=== PATIENT | female | born 1995 | race Caucasian/White ===

== ENCOUNTER 2017-06-18 14:14 | Emergency (ER) | payer BC ==
[2017-06-18 14:37] VITALS: BP 98/62
--- NOTE | 2017-06-18 14:48 | UC ---
UC Dental HPI - HPI Summary HPI Summary: Pain in her lower wisdom tooth that is erupting. Pt is 6 weeks PG. will have an appt with Dr. Antoine when she is 8 weeks pg. Pt has a 5 year old. Her allergies to meds are noted. - History of Current Complaint Chief Complaint: UCDentalProblem Stated Complaint: ORAL COMPLAINT Time Seen by Provider: 06/18/17 14:31 Hx Obtained From: Patient, Family/Real Estate Sales Associate - mother Hx Last Menstrual Period: ~12/12/15 ?: Yes Onset/Duration: Gradual Onset, Lasting Days, Still Present Severity: Moderate Pain Intensity: 6 Pain Scale Used: 0-10 Numeric Aggravating: Chewing Alleviating: Nothing - Allergies/Home Medications Allergies/Adverse Reactions: Allergies Allergy/AdvReac Type Severity Reaction Status Date / Time Amoxicillin Allergy Hives Verified 06/18/17 14:36 Penicillins Allergy Hives Verified 06/18/17 14:36 [place] Allergy Hives Verified 06/18/17 14:36 Sulfamethoxazole Allergy Hives Verified 06/18/17 14:36 w/Trimethoprim [From Bactrim] Home Medications: Home Medications Vitamin TAB* 1 tab PO DAILY 06/18/17 [History Confirmed 06/18/17] PMH/Surg Hx/FS Hx/Imm Hx Previously Healthy: Yes - Surgical History Surgical History: Yes Surgery Procedure, Year, and Place: D&C, 2007 - Family History Known Family History: Positive: Hypertension - Social History Lives: With Family Alcohol Use: None Substance Use Type: None Smoking Status (MU): Never Smoked Tobacco Household Exposure Type: Cigarettes - Immunization History Most Recent Influenza Vaccination: Not the Season Review of Systems Constitutional: Negative Skin: Negative Eyes: Negative ENT: Dental Pain Respiratory: Negative Cardiovascular: Negative Gastrointestinal: Negative Genitourinary: Negative Motor: Negative Neurovascular: Negative Musculoskeletal: Negative Neurological: Negative Psychological: Negative All Other Systems Reviewed And Are Negative: Yes Physical Exam Triage Information Reviewed: Yes Appearance: Well-Appearing, Well-Nourished, Pain Distress Vital Signs: Initial Vital Signs Temp 99.1 F 06/18/17 14:33 Pulse 76 06/18/17 14:33 Resp 16 06/18/17 14:33 BP 98/62 06/18/17 14:33 Pulse Ox 100 06/18/17 14:33 Vital Signs Reviewed: Yes Eyes: Positive: Conjunctiva Clear Dental: Positive: Other: - erupting wisdom tooth left lower; no swelling, no abscess. Negative: Gross Decay/Caries @, Dental Fracture @, Abscess @, Cellulitis @, Cervical Lymphadenopathy Neck: Positive: Supple, Nontender, No Lymphadenopathy Respiratory: Positive: No respiratory distress Cardiovascular: Positive: Brisk Capillary Refill Musculoskeletal: Positive: Strength Intact, ROM Intact Neurological: Positive: Alert, Muscle Tone Normal Psychological Exam: Normal Skin Exam: Normal Dental Complaint Course/Dx - Course Course Of Treatment: pt reports improvement with topical viscous lidocaine. Per epofeliciaates, lidocaine is safe in . - Differential Dx/Diagnosis Differential Diagnosis/Dx: Dental Abscess, Dental Caries, Fractured Tooth, Odontogenic Pain Provider Diagnoses: wisdom tooth pain. first trimester Discharge - Discharge Plan Condition: Stable Disposition: HOME Prescriptions: Lidocaine 2% VISCOUS* [Xylocaine 2% Viscous*] 15 ml SWISH SPIT Q3H PRN #1 btl PRN Reason: Pain Patient Education Materials: Toothache (ED) Forms: *Work Release Referrals: No Primary Care Phys,NOPCP [Primary Care Provider] - Additional Instructions: Get scheduled with a dentist JW. Remember do not take ibuprofen or aleve or aspirin, or any medications in this category (NSAIDS) while you are . You may take tylenol which is the same as acetaminophen, but sparingly because every medication is still important when you are . You may safely take acetaminophen up to 4 grams a day, so 2 of the 500mg acetaminophen tabs as often as every four hours up to four times in 24 hours. You may use the viscous lidocaine every 3 hrs as needed, with a maximum of 8 doses in 24 hours. Return to urgent care if you have any new or worsening symptoms.
[2017-06-18] MEDS ORDERED: Lidocaine 2% VISCOUS* 15 ML UDC PO ONE (15:06)
== END 2017-06-18 15:35 | disposition home or self-care (01) ==
LOC: UCCORT 14:14
DX: O26.891 Other specified pregnancy related conditions, first trimester (principal); K08.89 Other specified disorders of teeth and supporting structures; Z3A.01 Less than 8 weeks gestation of pregnancy; Z88.1 Allergy status to other antibiotic agents; Z88.0 Allergy status to penicillin; Z88.2 Allergy status to sulfonamides; Z77.22 Contact with and (suspected) exposure to environmental tobacco smoke (acute) (chronic)
CPT/HCPCS: 99212; G0463

== ENCOUNTER 2019-08-09 09:40 | Emergency (ER) | payer OTHER ==
--- OUTSIDE RECORDS SUMMARY | 2019-08-09 09:49 | XMS REPORT | Summary of Care ---
:1995 Author Organization [facility] Address [address] [place] [address] Care Team Providers Name Role Phone Prescribed, Self Primary Care Provider Unavailable Reason for Visit Reason Comments [facility]; need a CPE for work ([employer]); denies any complaints at this time. Encounter Details Date Type Department Care Team Description 07/21/2019 Office Visit [facility] Kevin Ley, Routine general medical examination at a health care facility (Primary Dx); Practice [address] [facility] Anemia, unspecified type; [address] [place] [address] Immunity to measles determined by serologic test; [place] [address] Immunity to rubella determined by serologic test [phone] Allergies Active Allergy Reactions Severity Noted Date Comments Amoxicillin Rash 07/10/2017 Bactrim Ds Rash 07/10/2017 Penicillins Rash 07/10/2017 documented as of this encounter (statuses as of 07/21/2019) Medications Medication Sig Dispensed Refills Start Date End Date Status Norgestimate-Ethinyl Take 1 Tab 28 Tab 12 06/30/2019 Active Estradiol by mouth (MONO-LINYAH) 0.25-35 DAILY. MG-MCG Oral TabIndications: Encounter for gynecological examination fluconazole Take 1 Tab 1 Tab 1 06/18/2019 07/21/2019 Discontinued (DIFLUCAN) 150 MG by mouth ONE Oral TabIndications: TIME. Candidal vulvovaginitis documented as of this encounter (statuses as of 07/21/2019) Active Problems Patient Care Coordination Note Previous delivery was VAD, shoulder dystocia and clavicular fracture Problem Noted Date Rh negative state in antepartum period 09/22/2017 History of shoulder dystocia in prior 09/01/2017 Overview: Primary section 02/03/18/Clive documented as of this encounter (statuses as of 07/21/2019) Resolved Problems Problem Noted Date Resolved Date state, incidental 12/24/2017 03/18/2018 Overview: Records from Dr. Arash Thrasher 05/01/17 Pap WNL Syphillis/RPR negative HepC negative HSV 1&2 both negative GC/Chlam negative Gardnerella positive documented as of this encounter (statuses as of 07/21/2019) Immunizations Name Administration Dates Next Due Influenza (IM) Preservative Free 10/21/2017 Rhogam (300 mcg) 11/26/2017, 09/22/2017 documented as of this encounter Social History Tobacco Use Types Packs/Day Years Used Date Never Smoker Smokeless Tobacco: Never Used Alcohol Use Drinks/Week oz/Week Comments Yes rare Sex Assigned at Date Recorded Not on file Job Start Date Occupation Industry Not on file Not on file Not on file Travel History Travel Start Travel End No recent travel history available. documented as of this encounter Last Filed Vital Signs Vital Sign Reading Time Taken Comments Blood Pressure 128/68 07/21/2019 3:14 PM EDT Pulse 87 07/21/2019 3:14 PM EDT Temperature - - Respiratory Rate - - Oxygen Saturation 97% 07/21/2019 3:14 PM EDT Inhaled Oxygen Concentration - - Weight 72.8 kg (160 lb 6.4 oz) 07/21/2019 3:14 PM EDT Height 160 cm (5' 3") 07/21/2019 3:14 PM EDT Body Mass Index 28.41 07/21/2019 3:14 PM EDT documented in this encounter Progress Notes Kevin Ley, DO - 07/21/2019 4:00 PM EDT PATIENT: Delphine Dash : 1995 DATE OF SERVICE: 07/21/2019 CHIEF COMPLAINT: Chief Complaint Patient presents with [facility]; need a CPE for work (wounded knee Care); denies any complaints at this time. Subjective HISTORY OF PRESENT ILLNESS: Delphine Dash is a 23-y.o. female. HPI Patient is here for physical today No smoking No chewing tobacco No excess alcohol intake No recreational drug use No depression Sexually active and monogamous Exercise: none Eating habits: states can be better. Eating outside Body mass index is 28.41 kg/m. Pap: follows with hu community development planner Needs proof of rubella and rubeola antibodies and ppd for work Past Medical History: Diagnosis Date Rh incompatibility Family History Problem Relation Age of Onset Skin Cancer Mother Cancer Maternal Grandfather hodkings Current Outpatient Medications Medication Sig Norgestimate-Ethinyl Estradiol (MONO-LINYAH) 0.25-35 MG-MCG Oral Tab Take 1 Tab by mouth DAILY. No current facility-administered medications for this visit. Allergies Allergen Reactions Amoxicillin Rash Bactrim Ds Rash Penicillins Rash Social History Socioeconomic History Marital status: Single Spouse name: Not on file Number of children: Not on file Years of education: Not on file Highest education level: Not on file Occupational History Not on file Social Needs Financial resource strain: Not on file Food insecurity: Worry: Not on file Inability: Not on file Transportation needs: Medical: Not on file Non-medical: Not on file Tobacco Use Smoking status: Never Smoker Smokeless tobacco: Never Used Substance and Sexual Activity Alcohol use: Yes Comment: rare Drug use: No Sexual activity: Yes Partners: Male control/protection: Pill Comment: single SO x 1 year Lifestyle Physical activity: Days per week: Not on file Minutes per session: Not on file Stress: Not on file Relationships Social connections: Talks on phone: Not on file Gets together: Not on file Attends scientologist service: Not on file Active member of club or organization: Not on file Attends meetings of clubs or organizations: Not on file Relationship status: Not on file Intimate partner violence: Fear of current or ex partner: Not on file Emotionally abused: Not on file Physically abused: Not on file Forced sexual activity: Not on file Other Topics Concern Not on file Social History Narrative Not on file Over the last 2 weeks, have you been feeling down, depressed, anxious, or hopeless?: 0 Over the past 2 weeks, have you felt little interest or pleasure in doing things ?: 0 REVIEW OF SYSTEMS: Review of Systems Constitutional: Negative for chills, diaphoresis, fever, malaise/fatigue and weight loss. HENT: Negative for congestion, ear discharge, ear pain, sinus pain and sore throat. Eyes: Negative for blurred vision. Respiratory: Negative for cough, hemoptysis, sputum production, shortness of breath and wheezing. Cardiovascular: Negative for chest pain, palpitations, orthopnea, claudication, leg swelling and PND. Gastrointestinal: Negative for abdominal pain, blood in stool, constipation, diarrhea, melena, nausea and vomiting. Genitourinary: Negative for dysuria, flank pain, frequency, hematuria and urgency. Musculoskeletal: Negative for joint pain and neck pain. Skin: Negative for itching and rash. Neurological: Negative for dizziness, sensory change, speech change, focal weakness, loss of consciousness, weakness and headaches. Endo/Heme/Allergies: Negative for polydipsia. Psychiatric/Behavioral: Negative for depression and substance abuse. The patient is not nervous/anxious. Objective PHYSICAL EXAM: VITALS: BP 128/68 (BP Location: Left arm, Patient Position: Sitting) | Pulse 87 | Ht 5' 3" (1.6 m) | Wt 160 lb 6.4 oz (72.8 kg) | SpO2 97% | BMI 28.41 kg /m Body mass index is 28.41 kg/m. Physical Exam Constitutional: She is oriented to person, place, and time. She appears well- developed and well-nourished. No distress. Overweight HENT: Head: Normocephalic and atraumatic. Nose: Nose normal. Mouth/Throat: No oropharyngeal exudate. Eyes: Pupils are equal, round, and reactive to light. Conjunctivae are normal. Right eye exhibits nodischarge. Left eye exhibits no discharge. No scleral icterus. Neck: Normal range of motion. Neck supple. No tracheal deviation present. No thyromegaly present. Cardiovascular: Normal rate and regular rhythm. No murmur heard. No lower extremity edema Pulmonary/Chest: Effort normal and breath sounds normal. No stridor. No respiratory distress. She has no wheezes. She has no rales. Abdominal: Soft. She exhibits no distension and no mass. There is no tenderness. There is no reboundand no guarding. Musculoskeletal: Normal range of motion. Lymphadenopathy: She has no cervical adenopathy. Right: No supraclavicular adenopathy present. Left: No supraclavicular adenopathy present. Neurological: She is alert and oriented to person, place, and time. Skin: Skin is warm and dry. She is not diaphoretic. No rashes in visible areas Psychiatric: She has a normal mood and affect. Her behavior is normal. Judgment normal. ASSESSMENT / IMPRESSION: ICD-9-CM ICD-10-CM 1. Routine general medical examination at a health care facility V70.0 Z00.00 COMPREHENSIVE METABOLIC PANEL LIPID PROFILE LIPID PROFILE COMPREHENSIVE METABOLIC PANEL PPD 2. Anemia, unspecified type 285.9 D64.9 CBC NO DIFFERENTIAL FERRITIN FERRITIN CBC NO DIFFERENTIAL 3. Immunity to measles determined by serologic test V72.61 Z01.84 RUBEOLA IGG AB RUBEOLA IGG AB 4. Immunity to rubella determined by serologic test V72.61 Z01.84 RUBELLA IGG ( SEROLOGY) RUBELLA IGG (SEROLOGY) Plan Recommend 150 minutes of cardio a week Half the lunch and dinner meals should consist of vegetables. Don't count corn, potatoes and peas asyour vegetables Continue to stay away from smoking, excess alcohol or any reactional drug use. Author: Kevin Ley DO 07/21/2019 16:27 documented in this encounter Plan of Treatment Name Type Priority Associated Diagnoses Date/Time RUBELLA IGG (SEROLOGY) Lab Routine Immunity to rubella 07/21/2019 4:17 PM determined by serologic EDT test RUBEOLA IGG AB Lab Routine Immunity to measles 07/21/2019 4:17 PM determined by serologic EDT test COMPREHENSIVE METABOLIC Lab Routine Routine general medical 07/21/2019 4: 17 PM PANEL examination at a [facility] EDT care facility CBC NO DIFFERENTIAL Lab Routine Anemia, unspecified type 07/21/2019 4:17 PM EDT FERRITIN Lab Routine Anemia, unspecified type 07/21/2019 4:17 PM EDT LIPID PROFILE Lab Routine Routine general medical 07/21/2019 4:17 PM examination at a health EDT care facility PPD POCT Routine Routine general medical 07/21/2019 4:00 PM examination at a health EDT care facility Name Type Priority Associated Diagnoses Order Schedule RUBELLA IGG (SEROLOGY) Lab Routine Immunity to rubella Expected: 07/21/2019 determined by serologic (Approximate), test Expires: 07/21/2020 RUBEOLA IGG AB Lab Routine Immunity to measles Expected: 07/21/2019 determined by serologic (Approximate), test Expires: 07/21/2020 COMPREHENSIVE METABOLIC Lab Routine Routine general medical Expected: 07/21 PANEL examination at a health (Approximate), care facility Expires: 07/21/2020 CBC NO DIFFERENTIAL Lab Routine Anemia, unspecified type Expected: 2018 (Approximate), Expires: 07/21/2020 FERRITIN Lab Routine Anemia, unspecified type Expected: 07/21/2019 (Approximate), Expires: 07/21/2020 LIPID PROFILE Lab Routine Routine general medical Expected: 07/21/2019 examination at a [facility] (Approximate), care facility Expires: 07/21/2020 Health Maintenance Due Date Last Done Comments HPV IMMUNIZATION SERIES (1 - 2008 Female 3-dose series) INFLUENZA VACCINE (#1) 2019 10/21/2017, 09/24/2016, 11/12/2012 PAP SMEAR 05/17/2020 05/17/2017 DEPRESSION SCREENING 07/21/2020 07/21/2019 HIV SCREENING Completed 07/10/2017 MENINGOCOCCAL VACCINE IMM Aged Out No longer eligible based on patient's age to complete this topic PNEUMOCOCCAL 0-64 YRS Aged Out No longer eligible based on patient's age to complete this topic documented as of this encounter Results Not on filedocumented in this encounter Visit Diagnoses Diagnosis Routine general medical examination at a [facility] care facility - Primary Anemia, unspecified type Immunity to measles determined by serologic test Immunity to rubella determined by serologic test documented in this encounter documented as of this encounter
[2019-08-09 09:51] VITALS: BP 122/78
--- NOTE | 2019-08-09 10:12 | UC ---
Throat Pain/Nasal Tyshawn HPI - HPI Summary HPI Summary: 23-year-old female whose had a sore throat for approximately 3 days. - History of Current Complaint Chief Complaint: UCGeneralIllness Stated Complaint: BODY ACHES,ST Time Seen by Provider: 08/09/19 09:56 Hx Obtained From: Patient Hx Last Menstrual Period: 08/02/19 ?: No Onset/Duration: Gradual Onset Severity: Mild Pain Intensity: 8 Cough: None Associated Signs & Symptoms: Positive: Negative - Allergies/Home Medications Allergies/Adverse Reactions: Allergies Allergy/AdvReac Type Severity Reaction Status Date / Time amoxicillin Allergy Hives Verified 08/09/19 09:52 Penicillins Allergy Hives Verified 08/09/19 09:52 sulfamethoxazole Allergy Hives Verified 08/09/19 09:52 [From Bactrim] trimethoprim [From Bactrim] Allergy Hives Verified 08/09/19 09:52 Home Medications: Home Medications Norgestimate-Ethinyl Estradiol [[place]-Linyah 28 Tablet] 1 tab PO DAILY 08/09/19 [ History Confirmed 08/09/19] PMH/Surg Hx/FS Hx/Imm Hx Previously Healthy: Yes - Surgical History Surgical History: Yes Surgery Procedure, Year, and Place: D&C, 2007. 2018 - Family History Known Family History: Positive: None, Hypertension - Social History Occupation: Employed Full-time Alcohol Use: None Substance Use Type: None Smoking Status (MU): Never Smoked Tobacco Household Exposure Type: Cigarettes - Immunization History Most Recent Influenza Vaccination: Not the 2014/2015 Season Review of Systems All Other Systems Reviewed And Are Negative: Yes ENT: Positive: Sore Throat Is Patient Immunocompromised?: No Physical Exam Triage Information Reviewed: Yes Appearance: Well-Appearing, No Pain Distress, Well-Nourished Vital Signs: Initial Vital Signs Temp 97.9 F 08/09/19 09:48 Pulse 18 08/09/19 09:48 Resp 16 08/09/19 09:48 BP 122/78 08/09/19 09:48 Pulse Ox 100 08/09/19 09:48 Vital Signs Reviewed: Yes Eyes: Positive: Conjunctiva Clear ENT: Positive: Hearing grossly normal, Pharynx normal, TMs normal, Uvula midline Neck: Positive: Supple, Nontender, No Lymphadenopathy Respiratory: Positive: Lungs clear, Normal breath sounds, No respiratory distress, No accessory muscle use Cardiovascular: Positive: RRR, No Murmur, Pulses Normal, Brisk Capillary Refill Musculoskeletal Exam: Normal Neurological Exam: Normal Psychological Exam: Normal Skin Exam: Normal Throat Pain/Nasal Course/Dx - Course Course Of Treatment: Patient is comfortable here. Rapid strep is negative. - Differential Dx/Diagnosis Provider Diagnosis: Acute pharyngitis Discharge ED - Sign-Out/Discharge Documenting (check all that apply): Patient Departure All imaging exams completed and their final reports reviewed: No Studies - Discharge Plan Condition: Good Disposition: HOME Patient Education Materials: Pharyngitis (ED) Referrals: Kevin Ley DO [Primary Care Provider] - Additional Instructions: Warm saltwater gargles, throat lozenges, Tylenol every 4 hours for fever or pain. Follow-up with your primary care provider in 3 or 4 days if no improvement. - Billing Disposition and Condition Condition: GOOD Disposition: Home
== END 2019-08-09 10:15 | disposition home or self-care (01) ==
LOC: UCCORT 09:40
DX: J02.9 Acute pharyngitis, unspecified (principal); Z88.0 Allergy status to penicillin; Z88.1 Allergy status to other antibiotic agents
CPT/HCPCS: 87651; 99211; G0463

== ENCOUNTER 2019-10-06 07:27 | Emergency (ER) | payer OTHER ==
[2019-10-06 07:45] VITALS: BP 115/69
--- NOTE | 2019-10-06 07:56 | UC ---
Eye Complaint HPI - HPI Summary HPI Summary: bilateral eye redness x 3 days + green / yellow discharge no eye pain , no photophobia, no change in vision denies any cold symptoms - History of Current Complaint Chief Complaint: UCEye Stated Complaint: RT EYE CONCERN Time Seen by Provider: 10/06/19 07:46 Hx Obtained From: Patient Hx Last Menstrual Period: 09/20/19 ?: No Onset/Duration: Gradual Onset, Lasting Days - 3, Still Present Timing: Constant Severity Initially: Moderate Severity Currently: Moderate Pain Intensity: 7 Location of Injury: Conjunctiva Aggravating Factor(s): Nothing Alleviating Factor(s): Nothing - Allergies/Home Medications Allergies/Adverse Reactions: Allergies Allergy/AdvReac Type Severity Reaction Status Date / Time amoxicillin Allergy Hives Verified 10/06/19 07:40 Penicillins Allergy Hives Verified 10/06/19 07:40 sulfamethoxazole Allergy Hives Verified 10/06/19 07:40 [From Bactrim] trimethoprim [From Bactrim] Allergy Hives Verified 10/06/19 07:40 Home Medications: Home Medications Ferrous Sulfate [Slow Fe] 142 mg PO DAILY 10/06/19 [History Confirmed 10/06/19] PMH/Surg Hx/FS Hx/Imm Hx Previously Healthy: Yes - Surgical History Surgical History: Yes Surgery Procedure, Year, and Place: D&C, 2007. 2018 - Family History Known Family History: Positive: None, Hypertension - Social History Alcohol Use: None Substance Use Type: None Smoking Status (MU): Never Smoked Tobacco Household Exposure Type: Cigarettes - Immunization History Most Recent Influenza Vaccination: Not the Season Review of Systems All Other Systems Reviewed And Are Negative: Yes Constitutional: Positive: Negative Skin: Positive: Negative Eyes: Positive: Drainage, Eye Redness ENT: Positive: Negative Is Patient Immunocompromised?: No Physical Exam Triage Information Reviewed: Yes Appearance: Well-Appearing, No Pain Distress, Well-Nourished Vital Signs: Initial Vital Signs Temp 97.1 F 10/06/19 07:41 Pulse 84 10/06/19 07:41 Resp 20 10/06/19 07:41 BP 115/69 10/06/19 07:41 Pulse Ox 100 10/06/19 07:41 Vital Signs Reviewed: Yes Eye Exam: Normal Eyes: Positive: Conjunctiva Inflamed, Discharge ENT Exam: Normal ENT: Positive: Normal ENT inspection, Hearing grossly normal, Pharynx normal Neck: Positive: Supple, Nontender, No Lymphadenopathy Respiratory: Positive: Chest non-tender, Lungs clear, Normal breath sounds Cardiovascular: Positive: RRR, No Murmur, Pulses Normal Skin Exam: Normal Eye Complaint Course/Dx - Differential Dx/Diagnosis Provider Diagnosis: Conjunctivitis Discharge ED - Sign-Out/Discharge Documenting (check all that apply): Patient Departure All imaging exams completed and their final reports reviewed: No Studies - Discharge Plan Condition: Stable Disposition: HOME Prescriptions: Gentamicin 0.3% OPHTH.SOLN* 1 drop BOTH EYES Q4H #1 btl Patient Education Materials: Conjunctivitis (ED) Referrals: Kevin Ley DO [Primary Care Provider] - If Needed - Billing Disposition and Condition Condition: STABLE Disposition: Home
== END 2019-10-06 07:57 | disposition home or self-care (01) ==
LOC: UCCORT 07:27
DX: H10.9 Unspecified conjunctivitis (principal); Z88.0 Allergy status to penicillin; Z88.8 Allergy status to other drugs, medicaments and biological substances
CPT/HCPCS: 99212; G0463

== ENCOUNTER 2020-08-25 05:45 | Inpatient (IN) ==
[2020-08-25] MEDS ORDERED: ceFOXitin 2 GM PREMIX 50 ML IVPB ONE (06:00)
[2020-08-25] MEDS ORDERED: Morphine PF AMP (0.5MG/ML) 5 MG/10 ML AMP ONE (07:42)
[2020-08-25] MEDS ORDERED: fentaNYL 100 mcg/2 ml 50 MCG/ML VIAL ONE (07:42)
[2020-08-25] MEDS ORDERED: Phenylephrine 40 mcg/mL 10mL (400mcg) SYRINGE ONE (08:02)
[2020-08-25] MEDS ORDERED: Oxytocin 10 UNITS/ML 1 ML VIAL ONE (08:16)
[2020-08-25] MEDS ORDERED: diPHENhydraMINE IV 50 MG/ML 1 ml VIAL (BENADRYL) IV PRN (08:32)
[2020-08-25] MEDS ORDERED: Ondansetron 4 mg VIAL 2 MG/ML 2 ml VIAL IV PRN (08:32)
[2020-08-25] MEDS ORDERED: Prochlorperazine 5 mg/ml 2 ml VIAL (10 mg) IV PRN (08:32)
[2020-08-25] MEDS ORDERED: Naloxone 0.4 mg VIAL 0.4 mg/ml 1 ml VIAL IV PRN (08:32)
[2020-08-25] MEDS ORDERED: Lactated Ringers 1000 ml BAG 1,000 ML IV ONE (09:55)
[2020-08-25] MEDS ORDERED: Glycerin ADULT 2.4 gm SUPP PR PRN (09:58)
[2020-08-25] MEDS ORDERED: Dibucaine 1% OINT 28.35 GM TUBE PR PRN (09:58)
[2020-08-25] MEDS ORDERED: Witch Hazel PAD JAR TOPICAL PRN (09:58)
[2020-08-25] MEDS ORDERED: RHO D Immune Globulin (HUMAN) 300 MCG = 1,500 I.U. INJ IM PRN (09:58)
[2020-08-25] MEDS ORDERED: Lactated Ringers 1000 ml BAG 1,000 ML IV SCH ×2 (10:00)
[2020-08-25 12:17] LABS: Urine Appearance Clear; Urine Bilirubin Negative (Negative); Urine Blood Negative (Negative); Urine Color Straw; Urine Glucose Negative (Negative); Urine Ketones Negative (Negative); Urine Nitrite Negative (Negative); Urine Protein Negative (Negative); Urine Specific Gravity 1.004 (1.010-1.030); Urine Urobilinogen Negative (Negative)
[2020-08-25 12:30] LABS: Urine Benzodiazepine Screen None Detected (None Detect); Urine Cannabinoids Screen None Detected (None Detect); Urine Opiates Screen None Detected (None Detect)
[2020-08-26 06:57] LABS: ABS Lymphocytes 1.8 10^3/ul (1.0-4.8); ABS Monocytes 0.7 10^3/ul (0-0.8); Eosinophil % 0.3 %; Hematocrit 34 % (35-47); Hemoglobin 11.8 g/dL (12.0-16.0); Lymphocyte % 13.2 %; Mean Corpuscular HGB Conc 35 g/dL (31-36); Mean Corpuscular Hemoglobin 31 pg (27-31); Mean Corpuscular Volume 90 fL (80-97); Mean Platelet Volume 8.2 fL (7.4-10.4); Platelet Count 327 10^3/uL (150-450); Red Blood Count 3.78 10^6 /uL (3.70-4.87); Red Cell Distribution Width 15 % (10-15); White Blood Count 13.6 10^3/uL (3.5-10.8)
[2020-08-26] MEDS ORDERED: Influenza VAC *QUAD* 2020-21* 0.5 ML SYRINGE IM ONE (18:00)
[2020-08-27 07:59] VITALS: BP 108/69
== END 2020-08-27 11:17 | disposition home or self-care (01) | DRG 540 ==
LOC: MCHOB 05:45
PROVIDERS: ADMIT Obstetrics & Gynecology; ATTEND Obstetrics & Gynecology

== ENCOUNTER 2022-11-25 05:06 | Inpatient (IN) ==
[2022-11-25 05:57] LABS: Hematocrit 33 % (35-47); Hemoglobin 11.3 g/dL (12.0-16.0); Mean Corpuscular HGB Conc 34 g/dL (31-36); Mean Corpuscular Hemoglobin 29 pg (27-31); Mean Corpuscular Volume 84 fL (80-97); Mean Platelet Volume 8.3 fL (7.4-10.4); Platelet Count 336 10^3/uL (150-450); Red Blood Count 3.97 10^6 /uL (3.70-4.87); Red Cell Distribution Width 15 % (10-15)
[2022-11-25] MEDS: Lactated Ringers 1000 ml BAG 1,000 ML IV SCH ×4 (07:00→11:38)
[2022-11-25] MEDS ORDERED: ceFAZolin 2 GM/50 ML BAG IV ONE (07:00)
[2022-11-25] MEDS ORDERED: Dexamethasone IV 4 MG/ML VIAL 1 ml VIAL ONE (07:44)
[2022-11-25] MEDS ORDERED: Ondansetron 4 mg VIAL 2 MG/ML 2 ml VIAL ONE (07:44)
[2022-11-25] MEDS ORDERED: Oxytocin 10 UNITS/ML 1 ML VIAL ONE (07:44)
[2022-11-25] MEDS ORDERED: Morphine PF AMP (0.5MG/ML) 5 MG/10 ML AMP ONE (07:46)
[2022-11-25] MEDS ORDERED: Sodium Citrate/Citric Acid LIQ 15 ML UDC ONE (07:51)
[2022-11-25] MEDS ORDERED: Acetaminophen IV 1 GM/100ML 1,000 MG/100 ML BAG IV PRN (09:15)
[2022-11-25] MEDS ORDERED: Naloxone 0.4 mg VIAL 0.4 mg/ml 1 ml VIAL IV PUSH PRN (09:15)
[2022-11-25] MEDS ORDERED: Metoclopramide 5 MG/ML VIAL (10 mg) IV PRN (09:15)
[2022-11-25] MEDS ORDERED: Ondansetron 4 mg VIAL 2 MG/ML 2 ml VIAL IV PRN (09:15)
[2022-11-25 09:46] LABS: Urine Benzodiazepine Screen None Detected (None Detect); Urine Opiates Screen None Detected (None Detect)
[2022-11-25] MEDS ORDERED: Glycerin ADULT 2.4 gm SUPP PR PRN (09:53)
[2022-11-25] MEDS ORDERED: Dibucaine 1% OINT 28.35 GM TUBE PR PRN (09:53)
[2022-11-25] MEDS ORDERED: Witch Hazel PAD JAR TOPICAL PRN (09:53)
[2022-11-26 07:34] LABS: ABS Monocytes 0.9 10^3/ul (0-0.8); Eosinophil % 0.2 %; Hematocrit 28 % (35-47); Hemoglobin 9.3 g/dL (12.0-16.0); Lymphocyte % 25.2 %; Mean Corpuscular HGB Conc 34 g/dL (31-36); Mean Corpuscular Hemoglobin 28 pg (27-31); Mean Corpuscular Volume 84 fL (80-97); Mean Platelet Volume 7.8 fL (7.4-10.4); Platelet Count 278 10^3/uL (150-450); Red Cell Distribution Width 16 % (10-15); White Blood Count 11.9 10^3/uL (3.5-10.8)
[2022-11-26] MEDS ORDERED: RHO D Immune Globulin (HUMAN) 300 MCG = 1,500 I.U. INJ IM ONE (13:58)
[2022-11-27 08:15] VITALS: BP 120/73
== END 2022-11-27 11:50 | disposition home or self-care (01) | DRG 540 ==
LOC: MCHOB 05:06
PROVIDERS: ADMIT Obstetrics & Gynecology; ATTEND Obstetrics & Gynecology